=== PATIENT | male | born 1955 | race Two or more races ===

== ENCOUNTER 2022-01-27 07:57 | Day surgery (SDC) | payer OTHER ==
[2022-01-27 09:18] VITALS: RESP 18; TEMP 97.4
[2022-01-27 09:35] VITALS: BP 98/56; PULSE 64
== END 2022-01-27 09:35 | disposition home or self-care (01) ==
LOC: FASU-ENDO 07:57
PROVIDERS: ATTEND Internal Medicine Gastroenterology
PROC: 0DBP8ZX Excision of Rectum, Via Natural or Artificial Opening Endoscopic, Diagnostic (ICD-10-PCS; principal; 2022-01-27 08:43)
DX: Z12.11 Encounter for screening for malignant neoplasm of colon (principal); K62.1 Rectal polyp
CPT/HCPCS: 88305-TC; 88342-TC

== ENCOUNTER 2023-12-14 04:18 | Day surgery (SDC) | payer OTHER ==
[2023-12-09 17:16] VITALS: BMI 27.9
[2023-12-14] MEDS ORDERED: TRIAMCINOLONE ACET 40MG/1ML VIAL ONE (07:40)
[2023-12-14] MEDS ORDERED: LIDOCAINE HCL/PF 1% SDV 5ML VIAL ONE (07:40)
[2023-12-14] MEDS ORDERED: EPINEPHrine/PF 1 MG/1 ML (1:1,000) AMPULE ONE (07:40)
[2023-12-14] MEDS ORDERED: BUPIVACAINE HCL/PF 0.75% 10 ML VIAL ONE (07:41)
[2023-12-14] MEDS ORDERED: CYCLOPENTOLATE HCL 1% OPHTH SOLN 2 ML BOTTLE ONE (07:41)
[2023-12-14] MEDS ORDERED: TROPICAMIDE 1% OPHTH SOLN 15 ML BOTTLE ONE (07:41)
[2023-12-14] MEDS ORDERED: LIDOCAINE HCL/PF 2% SDV 5ML VIAL ONE (07:41)
[2023-12-14] MEDS ORDERED: POVIDONE-IODINE 5% OPHTHALMIC PREP 30 ML SOLUTION ONE (07:42)
[2023-12-14] MEDS ORDERED: ACETYLCHOLINE 1:100 INTRA-OCUL 20 MG/2 ML KIT ONE (07:42)
[2023-12-14] MEDS ORDERED: TRYPAN BLUE 0.5 ML DISP.SYRIN ONE (07:42)
[2023-12-14] MEDS ORDERED: ACETAMINOPHEN 325 MG TABLET (FP) PO PRN (07:45)
[2023-12-14] MEDS ORDERED: OFLOXACIN 0.3% OPHTHALMIC SOLUTION 5 ML BOTTLE ONE (09:14)
[2023-12-14] MEDS: OFLOXACIN 0.3% OPHTHALMIC SOLUTION 5 ML BOTTLE OP SCH (09:39)
[2023-12-14] MEDS ORDERED: PHENYLEPHRINE 2.5% OPTHALMIC DROP 2ML BOTTLE ONE (11:01)
[2023-12-14] MEDS: BUPIVACAINE HCL/PF 0.75% 10 ML VIAL NR ONE (11:40)
[2023-12-14] MEDS: LIDOCAINE HCL/PF 2% SDV 5ML VIAL INF ONE (11:40)
[2023-12-14] MEDS: POVIDONE-IODINE 5% OPHTHALMIC PREP 30 ML SOLUTION OS ONE (11:41)
[2023-12-14] MEDS: CHONDROITIN SU A/HYALUR SOD 1 KIT IO ONE ×2 (11:50)
[2023-12-14] MEDS: ENOXAPARIN NA (PORCINE) 40 MG/0.4 ML DISP.SYRIN SQ ONE ×2 (11:53→13:10)
[2023-12-14] MEDS: ACETYLCHOLINE 1:100 INTRA-OCUL 20 MG/2 ML KIT IO ONE (12:03)
[2023-12-14] MEDS: TRYPAN BLUE 0.5 ML DISP.SYRIN IO ONE (12:05)
[2023-12-14] MEDS: LIDOCAINE HCL 1% PRESERVATIVE FREE - 30ML VIAL INF ONE (12:31)
[2023-12-14] MEDS: TROPICAMIDE 1% OPHTH SOLN 15 ML BOTTLE OS ONE ×2 (12:44)
[2023-12-14] MEDS: PHENYLEPHRINE 2.5% OPHTH SOLN 15 ML BOTTLE OS ONE ×2 (12:44)
[2023-12-14] MEDS: CYCLOPENTOLATE HCL 1% OPHTH SOLN 2 ML BOTTLE OS ONE ×2 (12:44)
[2023-12-14] MEDS: TRIAMCINOLONE ACET 40MG/1ML VIAL NR ONE ×2 (12:58)
[2023-12-14] MEDS: SODIUM CHLORIDE 1,000 ML IV SCH (13:10)
[2023-12-14] MEDS ORDERED: ONDANSETRON 4 MG/2 ML VIAL IVPUSH PRN (13:18)
[2023-12-14 15:31] VITALS: RESP 18
[2023-12-14 17:11] VITALS: BP 139/86; PULSE 64; TEMP 97.7
== END 2023-12-14 16:55 | disposition home or self-care (01) ==
LOC: JASU-SURG 04:18
PROVIDERS: ATTEND Ophthalmology
PROC: 08R9XKZ Replacement of Left Cornea with Nonautologous Tissue Substitute, External Approach (ICD-10-PCS; principal; 2023-12-14 11:00)
DX: H59.012 Keratopathy (bullous aphakic) following cataract surgery, left eye (principal)
CPT/HCPCS: 87070; 87102; 87205; 87210; 88304-TC; 94760; C1889